=== PATIENT | female | born 1960 | race Caucasian/White ===

== ENCOUNTER 2018-01-17 11:13 | Outpatient (CLI) | payer OTHER ==
[2016-05-24 18:19] VITALS: BP 119/68
--- NOTE | 2018-01-17 12:32 | Diagnostic Imaging Report ---
TANNER CHAVEZ [facility] [address] [facility] [address] [address] Report Submission Date: Jan 17, 2018 12:28:13 PM ELECTRICAL AND INSTRUMENTATION MECHANIC Patient Study Name: TRENTON KNAPP Date: Jan 17, 2018 11:34:03 AM ELECTRICAL AND INSTRUMENTATION MECHANIC Modality Type: DX Gender: F Description: LOWER EXTREMITY : 64 Institution: [facility] Physician: TANNER CHAVEZ Left femur History: Fell in the bathroom Four views of the left femur were obtained which demonstrate a probable nondisplaced fracture involving the greater trochanter. The remainder of the left femur is intact. Impression: Probable nondisplaced fracture of the left greater trochanter. The remainder of the left femur is unremarkable. Electronically signed on Jan 17, 2018 12:28:13 PM ELECTRICAL AND INSTRUMENTATION MECHANIC by: Melina FRIAS
--- NOTE | 2018-01-17 12:32 | Diagnostic Imaging Report ---
TANNER CHAVEZ [facility] [address] [facility] [id number] Report Submission Date: Jan 17, 2018 12:29:43 PM FINANCE ATTORNEY Patient Study Name: TRENTON KNAPP Date: Jan 17, 2018 11:39:47 AM FINANCE ATTORNEY Modality Type: DX Gender: F Description: PELVIS : 64 Institution: [facility] Physician: TANNER CHAVEZ Left hip History: Fell in the bathroom AP and frog-leg lateral projections of the left hip demonstrate the presence of a linear lucency involving the greater trochanter consistent with a nondisplaced fracture of the greater trochanter. No additional osseous abnormalities are noted. The left SI joint is intact. Impression: Subtle linear lucency involving the greater trochanter consistent with a nondisplaced fracture of the greater trochanter. No additional osseous abnormalities noted. Electronically signed on Jan 17, 2018 12:29:43 PM FINANCE ATTORNEY by: Melina FRIAS
== END 2018-01-17 11:14 ==
LOC: RAD 11:13
PROVIDERS: ATTEND Family Medicine
DX: M25.559 Pain in unspecified hip (principal); W19.XXXA Unspecified fall, initial encounter
CPT/HCPCS: 73552